=== PATIENT | female | born 1950 | race Caucasian/White ===

== ENCOUNTER → 2023-04-05 | Outpatient (REF) | payer OTHER, BC | LOC: M SFHCWOUN 17:15 | PROVIDERS: ATTEND Surgery | DX: M79.89 Other specified soft tissue disorders (principal) ==

== ENCOUNTER → 2024-08-31 | Outpatient (CLI) | payer MEDICARE | LOC: M RAD 11:08 | PROVIDERS: ATTEND Physician Assistant | DX: L97.524 Non-pressure chronic ulcer of other part of left foot with necrosis of bone (principal); R25.2 Cramp and spasm; S81.801A Unspecified open wound, right lower leg, initial encounter; R68.89 Other general symptoms and signs; W18.30XA Fall on same level, unspecified, initial encounter; Y92.009 Unspecified place in unspecified non-institutional (private) residence as the place of occurrence of the external cause ==